=== PATIENT | male | born 2000 | race Two or more races ===

== ENCOUNTER 2022-08-17 17:11 | Inpatient (IN) | payer OTHER ==
[~2022-08-17] VITALS: Ht 180.3 cm; Wt 105.9 kg
[2022-08-17] MEDS ORDERED: fentaNYL 100 MCG/2 ML INJECTION As Ordered ONE (17:14)
[2022-08-17] MEDS ORDERED: cefTRIAXone SOD 2 GM in D5W MINI-BAG PLUS 50 ML IV ONE (17:20)
[2022-08-17] MEDS ORDERED: BOOSTRIX VACCINE (TETANUS/DIPHTH/ACEL. PERTUSSIS) 0.5ML SYR IM.IMMUN ONE (17:20)
[2022-08-17] MEDS ORDERED: NS 1,000 ML IV ONE ×2 (17:20→23:59)
[2022-08-17 17:45] LABS: BASO % 0.4 % (0.0-1.0); EOS # 0.1 10^3/uL (0.0-0.5); EOS % 0.9 % (0.0-3.0); HEMATOCRIT 40.1 % (42.0-52.0); HEMOGLOBIN 13.9 g/dl (13.5-17.5); LYMPH % 26.5 % (24.0-44.0); MEAN CORPUSCULAR HEMOGLOBIN 31.7 pg (27.0-33.0); MEAN CORPUSCULAR HGB CONC 34.7 g/dl (32.0-36.5); MEAN CORPUSCULAR VOLUME 91.6 fl (80.0-96.0); MONO # 0.6 10^3/uL (0.0-0.8); MONO % 7.3 % (2.0-8.0); NEUTROPHILS # 4.9 10^3/uL (1.5-8.5); NEUTROPHILS % 64.6 % (36.0-66.0); PLATELET COUNT, AUTOMATED 210 10^3/uL (150-450); RED BLOOD COUNT 4.38 10^6/uL (4.30-6.10); WHITE BLOOD COUNT 7.6 10^3/uL (4.0-10.0)
[2022-08-17] MEDS ORDERED: fentaNYL 100 MCG/2 ML INJECTION IV PRN (17:55)
[2022-08-17 17:56] LABS: INR 1.01; PROTHROMBIN TIME 13.5 SECONDS (12.5-14.5)
[2022-08-17 17:57] LABS: PARTIAL THROMBOPLASTIN TIME 27.6 SECONDS (24.8-34.2)
[2022-08-17 18:08] LABS: ETHYL ALCOHOL (ETHANOL) < 0.003 % (0.000-0.010); LIPASE 25 U/L (12-53)
[2022-08-17 18:09] LABS: AMYLASE 76 U/L (30-118)
[2022-08-17 18:10] LABS: ALBUMIN 4.1 G/DL (3.2-5.2); ALKALINE PHOSPHATASE 58 U/L (46-116); ALT/SGPT 30 U/L (7.0-40); AST/SGOT 25 U/L (<34); BILIRUBIN,DIRECT 0.2 MG/DL (<0.4); BILIRUBIN,TOTAL 0.5 MG/DL (0.3-1.2); BLOOD UREA NITROGEN 10 MG/DL (9-23); CALCIUM LEVEL 9.2 MG/DL (8.5-10.1); CARBON DIOXIDE LEVEL 25 MMOL/L (20-31); CHLORIDE LEVEL 105 MMOL/L (98-107); GLOMERULAR FILTRATION RATE > 60.0 (>60); GLUCOSE, FASTING 90 MG/DL (60-100); POTASSIUM SERUM 3.4 MMOL/L (3.5-5.1); SODIUM LEVEL 138 MMOL/L (136-145); TOTAL PROTEIN 7.4 G/DL (5.7-8.2)
[2022-08-17] MEDS ORDERED: NS 1,000 ML IV SCH (18:15)
[2022-08-17 18:26] LABS: RSV AMPLIFICATION NEGATIVE (NEGATIVE)
[2022-08-17] MEDS ORDERED: ACETAMINOPHEN TAB 650MG DOSE (2X325MG) PO PRN (19:00)
[2022-08-17] MEDS ORDERED: ONDANSETRON 4MG 2ML VIAL IV PRN (19:00)
[2022-08-17] MEDS ORDERED: HYDROMORPHONE HCL 0.5 MG/ 0.5 ML SYRINGE IV ONE (19:00)
[2022-08-17] MEDS ORDERED: MORPHINE 2 MG/ML 1ML VIAL IV PRN (19:00)
[2022-08-17] MEDS ORDERED: HOME MED LIST COMPLETE! XX SCH (19:35)
[2022-08-17 20:30] VITALS: BP 125/78
[2022-08-17] MEDS: ENOXAPARIN 40MG/0.4ML SYRINGE (J1650 PER 10MG) SC SCH (21:22)
[2022-08-17] MEDS: MORPHINE 4 MG/ML 1ML VIAL IV PRN (21:32)
[2022-08-18] VITALS (9 sets, daily range): BP systolic 120–139; BP diastolic 67–75
[2022-08-18] MEDS: ceFAZolin SOD 2 GM in IV 1 EA IV SCH ×3 (00:30→20:18)
[2022-08-18] MEDS: MORPHINE 4 MG/ML 1ML VIAL IV PRN ×3 (01:49→14:43)
[2022-08-18 06:50] LABS: HEMOGLOBIN 12.8 g/dl (13.5-17.5); MEAN CORPUSCULAR HGB CONC 34.6 g/dl (32.0-36.5); MEAN CORPUSCULAR VOLUME 92.5 fl (80.0-96.0); PLATELET COUNT, AUTOMATED 198 10^3/uL (150-450); WHITE BLOOD COUNT 8.4 10^3/uL (4.0-10.0)
[2022-08-18 07:15] LABS: BLOOD UREA NITROGEN 7 MG/DL (9-23); CALCIUM LEVEL 8.3 MG/DL (8.5-10.1); CARBON DIOXIDE LEVEL 29 MMOL/L (20-31); CHLORIDE LEVEL 107 MMOL/L (98-107); CREATININE FOR GFR 0.79 MG/DL (0.70-1.30); GLOMERULAR FILTRATION RATE > 60.0 (>60); GLUCOSE, FASTING 90 MG/DL (60-100); POTASSIUM SERUM 3.6 MMOL/L (3.5-5.1); SODIUM LEVEL 142 MMOL/L (136-145)
[2022-08-18] MEDS ORDERED: MORPHINE 10 MG/ML 1ML VIAL IV ONE ×2 (07:35→07:55)
[2022-08-18] MEDS ORDERED: NS 500 ML IV ONE (07:35)
[2022-08-18] MEDS ORDERED: MORPHINE 10 MG/ML 1ML VIAL IM ONE (07:35)
[2022-08-18] MEDS ORDERED: ceFAZolin 2 GM/D5W 50 ML IV BAG As Ordered ONE (08:39)
[2022-08-18] MEDS ORDERED: propofoL 200 MG/20 ML VIAL As Ordered ONE (09:03)
[2022-08-18] MEDS ORDERED: LIDOCAINE 2% 100MG/5ML SDV (FOR ANES.) As Ordered ONE (09:03)
[2022-08-18] MEDS ORDERED: ONDANSETRON 4MG 2ML VIAL As Ordered ONE (09:03)
[2022-08-18] MEDS ORDERED: MIDAZOLAM INJ 2MG/2ML VIAL As Ordered ONE (09:03)
[2022-08-18] MEDS ORDERED: fentaNYL 100 MCG/2 ML INJECTION As Ordered ONE ×2 (09:03→11:16)
[2022-08-18] MEDS ORDERED: ACETAMINOPHEN 1000MG 100ML IV BAG As Ordered ONE (09:15)
[2022-08-18] MEDS ORDERED: KETOROLAC 60MG 2ML VIAL As Ordered ONE (10:42)
[2022-08-18] MEDS: fentaNYL 100 MCG/2 ML INJECTION IV PRN ×4 (11:19→11:34)
[2022-08-18] MEDS ORDERED: HYDROMORPHONE HCL 0.5 MG/ 0.5 ML SYRINGE IV PRN (11:20)
[2022-08-18] MEDS ORDERED: oxyCODONE 5MG TAB PO PRN (11:20)
[2022-08-18] MEDS ORDERED: LR 1,000 ML IV SCH (11:20)
[2022-08-18] MEDS ORDERED: ONDANSETRON 4MG 2ML VIAL IV PRN (11:20)
[2022-08-18] MEDS ORDERED: PERCOCET 5MG/325MG TAB PO PRN (14:55)
[2022-08-18] MEDS ORDERED: NALOXONE INJ 0.4MG/1ML VIAL IV PRN (14:55)
[2022-08-18] MEDS: PERCOCET 5MG/325MG TAB PO PRN (18:59)
[2022-08-18] MEDS: ENOXAPARIN 40MG/0.4ML SYRINGE (J1650 PER 10MG) SC SCH (20:17)
[2022-08-19] MEDS: PERCOCET 5MG/325MG TAB PO PRN ×4 (00:13→17:06)
[2022-08-19 02:00] VITALS: BP 113/50
[2022-08-19] MEDS: ceFAZolin SOD 2 GM in IV 1 EA IV SCH (04:11)
[2022-08-19 06:00] VITALS: BP 127/69
[2022-08-19] MEDS ORDERED: MORPHINE 10 MG/ML 1ML VIAL IV ONE (07:35)
[2022-08-19] MEDS ORDERED: MOM 30ML SUSPENSION UDC PO PRN (07:35)
[2022-08-19] MEDS ORDERED: MIRALAX *UNIT DOSE* 17GM PACKET PO PRN (07:35)
[2022-08-19] MEDS ORDERED: PERCOCET 5MG/325MG TAB PO ONE (08:30)
[2022-08-19] MEDS ORDERED: SENOKOT S TAB PO SCH (09:00)
[2022-08-19] MEDS ORDERED: MILKSUS3 PO (14:28)
[2022-08-19] MEDS ORDERED: MIRA3350 PO (14:28)
[2022-08-19] MEDS ORDERED: SENN-52 PO (14:28)
[2022-08-19] MEDS ORDERED: OXYC1TAB23 PO (14:28)
[2022-08-19] MEDS ORDERED: LOVE1INJ SC (14:36)
[2022-08-19] MEDS ORDERED: INSU1MIS20 SC (14:40)
[2022-08-19] MEDS ORDERED: ALCOPAD25 TOP (14:40)
[2022-08-19] MEDS: MORPHINE 10 MG/ML 1ML VIAL IV PRN ×2 (15:39→18:27)
[2022-08-19] MEDS ORDERED: ASPI325T42 PO (16:49)
== END 2022-08-19 19:00 | disposition home or self-care (01) | DRG 313 ==
LOC: M ED 17:11 → EDBD 17:11 → M ED INP 17:12 → M MS5PR 20:15 → OBSVTOIN 08-18 14:52
PROVIDERS: ADMIT Family Medicine; ATTEND Family Medicine
PROC: 0QSGXZZ Reposition Right Tibia, External Approach (ICD-10-PCS; 2022-08-17)
PROC: 2W3QX2Z Immobilization of Right Lower Leg using Cast (ICD-10-PCS; 2022-08-17)
PROC: 0QSJXZZ Reposition Right Fibula, External Approach (ICD-10-PCS; 2022-08-17)
PROC: 0QSG34Z Reposition Right Tibia with Internal Fixation Device, Percutaneous Approach (ICD-10-PCS; 2022-08-18)
PROC: BQ1DZZZ Fluoroscopy of Right Lower Leg (ICD-10-PCS; principal; 2022-08-18 08:30)
DX: S82.254A Nondisplaced comminuted fracture of shaft of right tibia, initial encounter for closed fracture (principal); E87.20 Acidosis, unspecified; W10.8XXA Fall (on) (from) other stairs and steps, initial encounter; Y92.9 Unspecified place or not applicable; F17.290 Nicotine dependence, other tobacco product, uncomplicated; Z20.822 Contact with and (suspected) exposure to COVID-19; S82.401A Unspecified fracture of shaft of right fibula, initial encounter for closed fracture

== ENCOUNTER → 2022-08-24 | Outpatient (CLI) | payer OTHER ==
[~2022-08-24] MED LIST: ALCOPAD25 TOP; ASPI325T42 PO; INSU1MIS20 SC; LOVE1INJ SC; MILKSUS3 PO; MIRA3350 PO; OXYC1TAB23 PO; SENN-52 PO
== END ==
LOC: M SOG 10:35
PROVIDERS: ATTEND Orthopaedic Surgery
DX: S82.201B Unspecified fracture of shaft of right tibia, initial encounter for open fracture type I or II (principal); X58.XXXA Exposure to other specified factors, initial encounter; Y92.9 Unspecified place or not applicable; Y93.9 Activity, unspecified; Y99.9 Unspecified external cause status

== ENCOUNTER → 2023-06-02 | Outpatient (CLI) | payer OTHER | LOC: M SOG 10:52 | PROVIDERS: ATTEND Orthopaedic Surgery | DX: S82.201E Unspecified fracture of shaft of right tibia, subsequent encounter for open fracture type I or II with routine healing (principal); Y93.9 Activity, unspecified; Y92.9 Unspecified place or not applicable ==

== ENCOUNTER → 2023-08-22 | Outpatient (CLI) | payer OTHER | LOC: M SOG 07:58 | PROVIDERS: ATTEND Orthopaedic Surgery | DX: S82.201E Unspecified fracture of shaft of right tibia, subsequent encounter for open fracture type I or II with routine healing (principal); Z53.9 Procedure and treatment not carried out, unspecified reason ==

== ENCOUNTER → 2024-03-25 | Outpatient (CLI) | payer OTHER | LOC: M SOG 07:49 | PROVIDERS: ATTEND Physician Assistant | DX: M25.561 Pain in right knee (principal); Z53.9 Procedure and treatment not carried out, unspecified reason ==

== ENCOUNTER → 2024-04-17 | Outpatient (CLI) | payer OTHER | LOC: M SOG 07:53 | PROVIDERS: ATTEND Physician Assistant | DX: M25.561 Pain in right knee (principal); S82.302D Unspecified fracture of lower end of left tibia, subsequent encounter for closed fracture with routine healing; M85.461 Solitary bone cyst, right tibia and fibula ==